=== PATIENT | female | born 1955 | race Caucasian/White ===

== ENCOUNTER 2016-10-09 10:30 | Day surgery (SDC) | payer MEDICARE ==
[~2016-10-09] VITALS: Ht 157.5 cm; Wt 41.0 kg
[~2016-10-09 10:30] MED LIST: 0.9% Sodium Chloride 1,000 ML IV SCH; CITA40TA PO; HYDR25CA PO; IMI100 PO; LORA-302 PO; NADO40TA PO; OMEP-113 PO; SPIR100T3 PO; SUMA100T2 PO; Sodium Chloride LOK Flush 10 mL Syringe IV PRN; TOPI50TA88 PO; TRAZ-118 PO; fentaNYL-PF 50 mCg/mL 2 mL Inj IVPUSH PRN
[2016-10-09 10:52] VITALS: BP 98/63; PULSE 45; RESP 16; O2SAT 100
[2016-10-09 11:55] VITALS: BP 100/53; PULSE 58; RESP 16; O2SAT 96
--- NOTE | 2016-10-09 12:20 | ENDO ---
[address] [address] ENDOSCOPY PROCEDURE PATIENT: MEGAN NAM : 1955 MR#: [id number] ADMIT: 10/09/2016 JOB ID: [id number] PROCEDURES PERFORMED: Esophagogastroduodenoscopy. INDICATION: Variceal screening. ANESTHESIA: The patient's ASA classification is two. Mallampati score is two. MEDICATIONS: 1. Versed 2 mg. 2. Fentanyl 50 mcg. INSTRUMENT USED: [id number]. PROCEDURE DETAILS: After informed consent was obtained, the patient was brought into the GI suite, where she was placed on oxygen via nasal cannula and monitored with continuous pulse oximeter, telemetry, and blood pressure monitoring. A time-out was performed, then she was placed in the left lateral decubitus position and medications were administered for sedation. A bite block was placed. The standard EGD scope was inserted through the bite block and advanced under direct visualization to the 2nd portion of the duodenum without difficulty. FINDINGS: 1. Normal appearing duodenal bulb, first and second portion. Bile stained mucosa was seen throughout the examined portions of the duodenum. 2. Normal appearing pylorus. In the antrum and body of the stomach there was a mild amount of food debris. 3. Retroflexed views in the gastric body revealed a normal-appearing cardia and fundus. No gastric varices were appreciated. 4. The GE junction was at approximately 38 cm and appeared regular. 5. No esophageal varices were seen on esophageal examination. IMPRESSION: Mild amount of food debris in the stomach suggestive of gastroparesis. Otherwise normal exam to second portion of the duodenum. RECOMMENDATIONS: 1. Repeat imaging of the liver in three months. 2. Repeat EGD in 1-2 years. COMPLICATIONS: None. ESTIMATED BLOOD LOSS: Zero.
[2016-10-09 12:24] VITALS: BP 110/62; PULSE 46; RESP 14; O2SAT 99
== END 2016-10-09 23:59 | disposition home or self-care (01) ==
LOC: END 10:30
PROVIDERS: ATTEND Internal Medicine Gastroenterology
DX: K70.30 Alcoholic cirrhosis of liver without ascites (principal); Z79.899 Other long term (current) drug therapy; Z87.891 Personal history of nicotine dependence
CPT/HCPCS: 43235; G0500; J2250; J3010; J7030